=== PATIENT | female | born 1960 | race Caucasian/White ===

== ENCOUNTER 2023-12-14 11:08 | Emergency (ER) | payer MEDICAID, SELFPAY ==
[2023-12-14 11:13] VITALS: BP 136/93; PULSE 74; TEMP 36.6; O2SAT 96; BMI 31.9
--- NOTE | 2023-12-14 11:44 | XR_ITS ---
[facility] [id number] Patient Name: TIARA CANALES MRN: [id number] date: 1960 Sex: F Assigned Patient Location: ER Current Patient Location: ER Accession/Order Number: [id number] Exam Date: 12/14/2023 12:12 Report Date: 12/14/2023 12:38 At the request of: NIMESH PITTMAN Procedure: XR lumbar spine 2-3V EXAMINATION: XR lumbar spine 2-3V HISTORY: back pain COMPARISON: No relevant comparison available. FINDINGS: BONES: Normal. No significant spondylosis, scoliosis, fracture, or visible bony lesion. DISC SPACES: Normal. No significant disc height narrowing, subluxation, or endplate abnormality. PARASPINOUS: Negative. No paraspinous abnormality is seen. OTHER: Negative. XR/XR lumbar spine 2-3V IMPRESSION: No acute radiographic abnormality Electronically authenticated by: AMADOU MORSE Date: 12/14/2023 12:38
[2023-12-14] MEDS: KETOROLAC TROMETHAMINE 30 MG/ML VIAL 15 MG IVP (12:02)
[2023-12-14 12:12] LABS: Basophils Absolute Auto 0.1 10^3/uL (0.0-0.1); Basophils Percent Auto 0.9 % (0.2-2.0); Eosinophils Absolute Auto 0.3 10^3/uL (0.0-0.7); Eosinophils Percent Auto 4.8 % (0.9-7.0); Hematocrit 40.8 % (36.0-48.0); Hemoglobin 13.6 g/dL (12.0-16.0); Immature Granulocytes Abs Auto 0.02 10^3/uL (0.00-0.03); Immature Granulocytes Pct Auto 0.3 % (0.0-0.5); Lymphocytes Absolute Auto 1.8 10^3/uL (1.2-3.8); Lymphocytes Percent Auto 27.7 % (20.5-60.0); Mean Corpuscular HGB Conc 33.3 g/dL (29.9-35.2); Mean Corpuscular Hemoglobin 33.9 pg (26.7-34.0); Mean Corpuscular Volume 101.7 fL (81.0-99.0); Mean Platelet Volume 9.6 fL (9.5-13.5); Monocytes Absolute Auto 0.5 10^3/uL (0.3-0.8); Monocytes Percent Auto 7.7 % (1.7-12.0); Neutrophils Absolute Auto 3.9 10^3/uL (1.4-6.5); Neutrophils Percent Auto 58.6 % (43.0-75.0); Platelet Count 313 10^3/uL (150-450); Red Blood Count 4.01 10^6/uL (4.20-5.40); Red Cell Distribution Width 13.2 % (11.0-15.0); White Blood Count 6.7 10^3/uL (4.0-11.0)
[2023-12-14 12:25] LABS: Erythrocyte Sedimentation Rate 32 mm/hr (<=30)
[2023-12-14 12:38] LABS: Alanine Aminotransferase 34 U/L (14-59); Albumin Globulin Ratio 0.9; Albumin Level 3.4 g/dL (3.4-5.0); Alkaline Phosphatase 79 U/L (46-116); Anion Gap 12.6; Aspartate Amino Transferase 16 U/L (15-37); BUN Creatinine Ratio 16.5; Bilirubin Total 0.3 mg/dL (0.2-1.0); C Reactive Protein <0.50 mg/dL (<=0.50); Calcium 8.9 mg/dL (8.5-10.1); Carbon Dioxide 26.7 mmol/L (21.0-32.0); Chloride 103 mmol/L (98-107); Estimated GFR (African America >60 (>=60); Estimated GFR (Non-African Ame >60 (>=60); Globulin 3.6 g/dL; Glucose 109 mg/dL (74-106); Potassium 4.3 mmol/L (3.5-5.1); Sodium 138 mmol/L (136-145)
--- NOTE | 2023-12-14 13:24 | ED_ITS ---
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 With a generalized joint pain mostly in the right hip and the right knee and the back as well as the right shoulder. Patient that this pain started over the last 24 hours she usually have right knee pain but for the last 24 hours she has been having burning sensation in those joints No history of fall or trauma no history of fever chills or any other pain Related Data Home Medications ?Medication ?Instructions ?Recorded ?Confirmed amlodipine 5 mg tablet 5 mg PO .QD 12/14/23 12/14/23 atorvastatin 80 mg tablet 80 mg PO .QHS 12/14/23 12/14/23 duloxetine 30 mg capsule,delayed 30 mg PO .QD 12/14/23 12/14/23 release lisinopril 20 mg tablet 20 mg PO QDAY 12/14/23 12/14/23 metoprolol succinate 25 mg 25 mg PO QDAY 12/14/23 12/14/23 tablet,extended release 24 hr montelukast 10 mg tablet 10 mg PO QDAY 12/14/23 12/14/23 naltrexone 50 mg tablet 50 mg PO Q24H 12/14/23 12/14/23 omeprazole 40 mg capsule,delayed 40 mg PO QDAY 12/14/23 12/14/23 release trazodone 50 mg tablet 50 mg PO .HS 12/14/23 12/14/23 Previous Rx's ?Medication ?Instructions ?Recorded diclofenac sodium 75 mg 75 mg PO BID PRN pain #14 tabs 12/14/23 tablet,delayed release Allergies Allergy/AdvReac Type Severity Reaction Status Date / Time No Known Drug Allergies Allergy Verified 12/14/23 11:21 Opioid HPI Opioid Management Most Recent Opioid Data: Last Pain Scale 9 12/14/23 12:02 Last MAR Pain Assessment 12/14/23 12:02 Review of Systems ROS Status of ROS 10 or more systems reviewed and unremark able except as noted in history and below Exam Narrative Exam Narrative: Nurses notes and vital signs reviewed and patient is not hypoxic. General: Well-appearing and in no apparent distress. Skin: Warm, dry, no pallor noted. No rash. Head: Normocephalic, atraumatic. Neck: Supple, non-tender. Eye: Pupils are equal, round and EOMI. No scleral icterus. Ears, Nose, Mouth, and Throat: TM are clear, no nasal mucosal hypertrophy. Oral mucosa is moist, no posterior oropharynx erythema, uvula is mid-line Cardiovascular: Regular Rate and Rhythm without murmur, gallop or rub. Respiratory: No accessory muscle use or respiratory distress. Lungs are clear to auscultation, no wheezing, rales or rhonchi Chest Wall: no tenderness Back: No midline thoracic or lumbar vertebral tenderness. No CVA tenderness Musculoskeletal: normal ROM, no calf or popliteal tenderness, no lower extremity edema/swelling GI: Abdomen is soft, non-distended. Normal bowel sounds. No masses appreciated. No tenderness to palpation. No rebound, guarding, or rigidity noted. Neurological: A&O x4. No cranial nerve dysfunction observed. No truncal ataxia. Moves all extremities. Sensation intact. Psychiatric: Cooperative and interactive. Normal mood and affect. Constitutional Vital Signs, click to edit/add: Last Vital Signs Temp 98 F 12/14/23 11:13 Pulse 74 12/14/23 11:13 Resp 14 12/14/23 11:13 BP 136/93 H 12/14/23 11:13 Pulse Ox 96 12/14/23 11:13 O2 Del Method Room Air 12/14/23 11:13 Course Vital Signs Vital signs: Vital Signs Temperature 98 F 12/14/23 11:13 Pulse Rate 74 12/14/23 11:13 Respiratory Rate 14 12/14/23 11:13 Blood Pressure 136/93 H 12/14/23 11:13 Pulse Oximetry 96 12/14/23 11:13 Oxygen Delivery Method Room Air 12/14/23 11:13 Temperature 98 F 12/14/23 11:13 Pulse Rate 74 12/14/23 11:13 Respiratory Rate 14 12/14/23 11:13 Blood Pressure 136/93 H 12/14/23 11:13 Pulse Oximetry 96 12/14/23 11:13 Oxygen Delivery Method Room Air 12/14/23 11:13 MDM - Back Pain/Injury MDM Narrative Medical decision making narrative: On examination I could not elicit the pain that the patient is having CBC and chemistry showed no acute pathology with no elevated CRP but ESR was elevated Patient was treated in the ER with Toradol and discharged home with Voltaren and referred to her primary care as outpatient The patient is to follow up with primary care physician in next 2-3 days or to return to the emergency department should any of the signs or symptoms worsen or new symptoms develop. The patient agrees with the following Diagnosis and Treatment plan and the patient will be discharged home. Lab Data Labs: Lab Results 12/14/23 Range/Units 12:00 WBC 6.7 (4.0-11.0) 10^3/uL RBC 4.01 L (4.20-5.40) 10^6/uL Hgb 13.6 (12.0-16.0) g/dL Hct 40.8 (36.0-48.0) % MCV 101.7 H (81.0-99.0) fL MCH 33.9 (26.7-34.0) pg MCHC 33.3 (29.9-35.2) g/dL RDW 13.2 (11.0-15.0) % Plt Count 313 (150-450) 10^3/uL MPV 9.6 (9.5-13.5) fL Neut % (Auto) 58.6 (43.0-75.0) % Lymph % (Auto) 27.7 (20.5-60.0) % [place] % (Auto) 7.7 (1.7-12.0) % Eos % (Auto) 4.8 (0.9-7.0) % Baso % (Auto) 0.9 (0.2-2.0) % Neut # (Auto) 3.9 (1.4-6.5) 10^3/uL Lymph # (Auto) 1.8 (1.2-3.8) 10^3/uL [place] # (Auto) 0.5 (0.3-0.8) 10^3/uL Eos # (Auto) 0.3 (0.0-0.7) 10^3/uL Baso # (Auto) 0.1 (0.0-0.1) 10^3/uL Abs Immat Gran (auto) 0.02 (0.00-0.03) 10^3/uL Imm/Tot Granulo (auto) 0.3 (0.0-0.5) % ESR 32 H (<=30) mm/hr Sodium 138 (136-145) mmol/L Potassium 4.3 (3.5-5.1) mmol/L Chloride 103 (98-107) mmol/L Carbon Dioxide 26.7 (21.0-32.0) mmol/L Anion Gap 12.6 BUN 13.0 (7.0-18.0) mg/dL Creatinine 0.79 (0.55-1.02) mg/dL Est GFR ( Amer) >60 (>=60) Est GFR (Non-Af Amer) >60 (>=60) BUN/Creatinine Ratio 16.5 Glucose 109 H (74-106) mg/dL Calcium 8.9 (8.5-10.1) mg/dL Total Bilirubin 0.3 (0.2-1.0) mg/dL AST 16 (15-37) U/L ALT 34 (14-59) U/L Alkaline Phosphatase 79 (46-116) U/L C-Reactive Protein <0.50 (<=0.50) mg/dL Total Protein 7.0 (6.4-8.2) g/dL Albumin 3.4 (3.4-5.0) g/dL Globulin 3.6 g/dL Albumin/Globulin Ratio 0.9 Discharge Plan Discharge Stand Alone Forms: Work/School Release, Portal Instructions Chief Complaint: Back Pain/Injury Clinical Impression: Arthralgia of multiple joints Patient Disposition: Home, Self-Care Time of Disposition Decision: 13:24 Condition: Good Prescriptions / Home Meds: New diclofenac sodium 75 mg tablet,delayed release (DR/EC) 75 mg PO BID PRN (Reason: pain ) Qty: 14 0RF Discontinued diclofenac sodium 1 % gel 2.25 inch TOPICAL .Q12 No Action amlodipine 5 mg tablet 5 mg PO .QD atorvastatin 80 mg tablet 80 mg PO .QHS duloxetine 30 mg capsule,delayed release(DR/EC) 30 mg PO .QD lisinopril 20 mg tablet 20 mg PO QDAY metoprolol succinate 25 mg tablet extended release 24 hr 25 mg PO QDAY Rx Instructions: 1PM montelukast 10 mg tablet 10 mg PO QDAY naltrexone 50 mg tablet 50 mg PO Q24H omeprazole 40 mg capsule,delayed release(DR/EC) 40 mg PO QDAY trazodone 50 mg tablet 50 mg PO .HS Print Language: Malay Instructions: Arthralgia (ED) Referrals: Physician,Non-Staff, MD [Primary Care Provider] - 1 week
[2023-12-14 13:30] VITALS: BP 110/78; PULSE 64; O2SAT 100
== END 2023-12-14 13:32 | disposition home or self-care (01) ==
PROVIDERS: Emergency Provider Emergency Medicine
DX: M25.551 Pain in right hip (principal); M25.561 Pain in right knee
CPT/HCPCS: 36415; 72100; 80053; 85025; 85652; 86140; 96374; 99284; J1885